=== PATIENT | female | born 1925 | race Caucasian/White ===

== ENCOUNTER 2016-12-11 06:49 | Day surgery (SDC) | payer OTHER ==
[~2016-12-11] VITALS: Ht 149.9 cm; Wt 44.6 kg
[2016-12-11] VITALS (9 sets, daily range): BP systolic 149–173; BP diastolic 58–70; PULSE 55–72; RESP 12–24; Ht 149.9 cm; Wt 44.6 kg
[2016-12-11] MEDS ORDERED: DESFLURANE 15 MIN ONE (07:00)
[2016-12-11] MEDS ORDERED: LIDOCAINE 2% (SDV) 5 ML INJ ONE (07:00)
[2016-12-11] MEDS ORDERED: SERT25TA83 PO (07:28)
[2016-12-11] MEDS ORDERED: MEMA5TAB PO (07:28)
[2016-12-11] MEDS ORDERED: LOSA50TA6 PO (07:28)
[2016-12-11] MEDS ORDERED: ROPIVACAINE 0.5 % 30 ML VIAL ONE ×2 (07:40→08:11)
[2016-12-11] MEDS ORDERED: morphine SULFATE/PF (10 MG/10 ML) INJ ONE (07:41)
[2016-12-11] MEDS ORDERED: POLYMYXIN/BACITRACIN 1L IRRIG ONE (07:41)
--- NOTE | 2016-12-11 07:59 | HPN ---
Date/Time of Note Date/Time of Note DATE: 12/11/16 TIME: 07:58 Interval H&P Admission Note Pt. seen H&P reviewed: No system changes ILYA MONGE MD Dec 11, 2016 07:59
[2016-12-11] MEDS ORDERED: ETOMIDATE 20 MG INJ ONE (08:07)
[2016-12-11] MEDS ORDERED: ROCURONIUM 50 MG INJ ONE (08:07)
[2016-12-11] MEDS ORDERED: LIDOCAINE 1% (MDV) 20 ML INJ ONE ×2 (08:07→08:27)
[2016-12-11] MEDS ORDERED: DEXAMETHASONE 4 MG/ML 1 ML INJ ONE ×2 (08:15→09:33)
[2016-12-11] MEDS ORDERED: MIDAZOLAM 1 MG/ML 2 ML INJ ONE (08:16)
[2016-12-11 08:45] LABS: CALCIUM 9.1 mg/dl (8.4-10.2); CREATININE 0.73 mg/dl (0.44-1.00); POTASSIUM 3.6 mmol/L (3.5-5.1)
[2016-12-11] MEDS ORDERED: CLINDAMYCIN 600 MG/D5W (PMX) 50 ML IVPB ONE (08:52)
[2016-12-11] MEDS ORDERED: ONDANSETRON 4 MG INJ ONE (09:33)
[2016-12-11] MEDS ORDERED: BACITRACIN 0.9 GM OINT ONE (10:45)
--- NOTE | 2016-12-11 11:18 | OPR ---
Date/Time of Note Date/Time of Note DATE: 12/11/16 TIME: 11:14 Operative Report Preoperative Diagnosis Displaced intra-articular Fracture Distal Rt Radius Postoperative Diagnosis Same Operation/Procedure Performed ORIF Rt Distal Radius Fracture Surgeon: ILYA MONGE MD Anesthesia: general, other (Axillary Block) Estimated Blood Loss: none Specimens NA Grafts/Implants Synthesis Locking Plate Complications: None ILYA MONGE MD Dec 11, 2016 11:18
[2016-12-11] MEDS ORDERED: hydrALAzine 20 MG INJ IV PRN (11:30)
[2016-12-11] MEDS ORDERED: HYDROmorphONE (0.2 MG/ML) 10ML SYG IV PRN (11:30)
[2016-12-11] MEDS ORDERED: FENTAnyl 50 MCG/ML VIAL IV PRN (11:30)
[2016-12-11] MEDS ORDERED: ONDANSETRON 4 MG INJ IV PRN (11:30)
[2016-12-11] MEDS ORDERED: LABETALOL HCL 20MG INJ IV PRN (11:30)
[2016-12-11] MEDS: HYDROCODONE/APAP (10/325) TAB NGT PRN ×2 (13:00→13:22)
--- NOTE | 2016-12-11 14:02 | OPR ---
DATE OF OPERATION: 12/11/2016 PREOPERATIVE DIAGNOSIS: Mal-uniting Displaced and angulated intra-articular fracture, right distal radius. POSTOPERATIVE DIAGNOSIS: Maluniting Displaced and angulated intra-articular fracture, right distal radius. OPERATION PERFORMED: 1. Open reduction internal fixation of intra-articular delayed maluniting fracture. 2. Application of short-arm splint. SURGEON: Samy Dunlap MD OPERATIVE PROCEDURE: With the patient supine on the operating room table, general anesthesia and axillary block anesthesia were used to anesthetize the right upper extremity and the patient. Clindamycin 600 mg was administered. The right upper extremity from below the tourniquet was prepared and draped in a sterile fashion. The Esmarch bandage was applied. The tourniquet was inflated to 250 mmHg. A longitudinal incision was made along the flexor carpi radialis. This was curved radially at the level of the radial styloid and then volarly. The flexor carpi radialis was retracted ulnarly. The flexor pollicis longus was identified. This too was retracted ulnarly. The pronator quadratus was then noted. This was elevated from the bone and the fracture clearly identified. The fracture was maluniting. It took considerable difficulty to disengage the radial articular fragment. Callus had formed. With considerable difficulty, the fracture was reduced. Two temporary K-wires were introduced. This was an incomplete reduction. A Synthes locking plate was applied with three vertical holes and six horizontal holes. This was clamped in place. A 2.0 drill was used in the slotted hole and an appropriate cortical screw was placed. The plate was adjusted with the aid of the image intensifier. The fracture was further reduced. Two K-wires were introduced to temporarily hold the improved reduction, although it was still incomplete. The horizontal holes were drilled using the guide, with the 1.8 drill, an appropriate locking screw was placed. The two K-wires were removed. Attention was redirected to the vertical limb. The two remaining holes were drilled with a 1.8 drill and locking screw was placed. The image intensifier showed satisfactory position of the plate and screws, although the reduction was incomplete. Sutures of 3-0 Vicryl were used to repair the pronator quadratus. [place] were used to approximate the skin. A voluminous sterile hand dressing and dorsal splint maintaining the wrist in 20 degrees of extension and the metacarpophalangeal joints in 60 degrees of flexion was applied. It should be noted that preoperatively, the elbow was noted to have a contracture and could not be fully extended. Even with general anesthesia, the elbow could not be fully extended. This was also apparent at the termination of the surgery. The patient tolerated the procedure and left in satisfactory condition. Dictated By: Samy Dunlap MD /felipe/fabienne /Document#: [id number] RUPESH
--- NOTE | 2016-12-11 15:15 | RADRPT ---
PROCEDURE: Intraoperative imaging of the right wrist with fluoroscopy. CLINICAL INDICATION: Right wrist pain. Intraoperative. TECHNIQUE: 5 images of the right wrist were obtained in the operating room with an image intensifi er. No radiologist was in attendance. Fluoroscopy time is 12 minutes. COMPARISON: No prior study is available for comparison. FINDINGS: Images demonstrate open reduction and internal fixation of the distal radius with a plate and multip le screws. IMPRESSION: 1. Intraoperative imaging of the right wrist. RPTAT: QQ .David Branch MD, MD Date Time Electronically viewed and signed by .David Branch MD, on 12/11/2016 15:14 .R/
== END 2016-12-11 13:30 | disposition home or self-care (01) ==
LOC: SDS 06:49
PROVIDERS: ATTEND Orthopaedic Surgery Hand Surgery
DX: X58.XXXD Exposure to other specified factors, subsequent encounter (principal); S52.571P Other intraarticular fracture of lower end of right radius, subsequent encounter for closed fracture with malunion; I10 Essential (primary) hypertension; F03.90 Unspecified dementia, unspecified severity, without behavioral disturbance, psychotic disturbance, mood disturbance, and anxiety
CPT/HCPCS: 25400; 73090; 80048; J1100; J2250; J2405; J2795; J3010; J2274